=== PATIENT | female | born 1990 | race Caucasian/White ===

== ENCOUNTER 2019-12-09 17:07 | Emergency (ER) | payer BC, SELFPAY ==
--- NOTE | ~2019-12-09 | CT_ITS ---
EXAMINATION: CT abdomen pelvis w con INDICATION: Abdominal pain TECHNIQUE: Computed tomographic images of the abdomen and pelvis were obtained after the administrati on of 100 cc of Omnipaque 350 intravenous contrast. The dose-length product (DLP) was 279.13 mGy-cm. Automated exposure control and iterative reconstruction technique were employed. COMPARISON: 07/20/2019 FINDINGS: The lung bases are clear. The heart size is normal. The liver, spleen, pancreas, and adrena l glands are normal. Stones are present in the nondistended gallbladder. The kidneys are unremarkable . There is wall thickening of the gastric antrum. There is inflammatory change surrounding the gastri c antrum and the first portion of the duodenum. There is no free intraperitoneal gas or evidence of b owel obstruction. No pathologically enlarged abdominal or pelvic lymph nodes are identified. IMPRESSION: 1. Moderate wall thickening of the gastric antrum with inflammatory change surrounding the gastric an trum and first portion of the duodenum, consistent with history of peptic ulcer disease. Reviewed, dictated and finalized at location A. IMPRESSION: 1. Moderate wall thickening of the gastric antrum with inflammatory change surr ounding the gastric antrum and first portion of the duodenum, consistent with h istory of peptic ulcer disease.
[2019-12-09 17:10] VITALS: BP 147/93; PULSE 102; RESP 20; TEMP 36.9; O2SAT 100
[2019-12-09 17:26] VITALS: BP 124/86; PULSE 107; RESP 17; O2SAT 100
--- NOTE | 2019-12-09 17:28 | ED.ABDPAIN ---
HPI - Abdominal Pain General Chief Complaint: Abdominal Pain <Luke Keller PA-C - Last Filed: 12/09/19 19:08> Stated Complaint: abd pain <YOUSUF Patino Last Filed: 12/09/19 19:08> Time Seen by Provider: 12/09/19 17:08 <YOUSUF Patino Last Filed: 12/09/19 19:08> Source: patient <YOUSUF Patino Last Filed: 12/09/19 19:08> Mode of arrival: ambulatory <YOUSUF Patino Last Filed: 12/09/19 19:08> Limitations: no limitations <Luke Keller PA-C - Last Filed: 12/09/19 19:08> History of Present Illness HPI narrative: Patient is a 29-year-old female who presents to emergency department for evaluation of right upper quadrant epigastric abdominal tenderness that is moderate to severe in nature localized in the mentioned locations does not radiate history of peptic ulcer takes Protonix for this which has not helped patient has had similar pain but typically resolves. Patient denies other complaints pain is made worse with eating patient also notes decreased appetite <Luke Keller PA-C - Last Filed: 12/09/19 19:08> Related Data Home Medications: Home Medications Medication Instructions Recorded Confirmed pantoprazole 80 mg PO QAM 07/20/19 mirtazapine 30 mg PO HS 12/09/19 multivit with min-folic acid 1 mg PO DAILY 12/09/19 [Adult One Daily Multivitamin] <YOUSUF Patino Last Filed: 12/09/19 19:08> Allergies/Adverse Reactions: Allergies Allergy/AdvReac Type Severity Reaction Status Date / Time ibuprofen Allergy Unknown GI/ULCER Verified 12/09/19 17:15 <Luke Keller PA-C - Last Filed: 12/09/19 19:08> Review of Systems Review of Systems: All systems reviewed & are unremarkable except as noted in HPI and below <Luke Keller PA-C - Last Filed: 12/09/19 19:08> PMFSH Past Medical History Medical History: Medical History Anxiety Depression Duodenal ulcer, perforated Parotiditis Ulcer <YOUSUF Patino Last Filed: 12/09/19 19:08> Surgical History Surgical History: Surgical History H/O endoscopy <Luke Keller PA-C - Last Filed: 12/09/19 19:08> Social History Social History: Social History Gender identity (if verbalized by the patient): Female <Luke Keller PA-C - Last Filed: 12/09/19 19:08> Exam Narrative: Exam Narrative: GENERAL: Well-appearing, well-nourished, and in no acute distress. HEAD: Normocephalic, atraumatic. EYES: PERRLA and EOMI. ENT: Nares clear, no rhinorrhea or epistaxis. Mucous membranes moist. CHEST: Clear to auscultation. No respiratory distress. No wheezes rales or rhonchi HEART: Regular rate and rhythm. No murmur heard. Normal peripheral pulses. ABDOMEN: Soft, right upper quadrant and epigastric tenderness to palpation no rebound or guarding, nondistended, normal active bowel sounds. EXTREMITIES: Normal range of motion. No edema. SKIN: Warm, dry, no rash. NEURO: No focal deficits. Alert and oriented x3. PSYCH: Normal mood and affect. 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
[2019-12-09 17:30] LABS: Basophils Percent Auto 0.4 % (0.2-1.2); Eosinophils Absolute Auto 0.3 K/mm3 (0-0.3); Eosinophils Percent Auto 3.9 % (0-4.4); Hematocrit 42.1 % (37.0-47.0); Hemoglobin 14.5 g/dL (12.0-15.0); Immature Granulocyte Absolute 0.03 K/mm3 (0.00-0.031); Immature Granulocyte Percent A 0.4 % (0-0.5); Lymphocytes Absolute Auto 1.93 K/mm3 (0.9-3.2); Lymphocytes Percent Auto 28.9 % (18.3-44.2); Mean Corpuscular HGB Conc 34.4 g/dl (32-36); Mean Corpuscular Hemoglobin 30.5 pg (26-34); Mean Corpuscular Volume 88.4 fl (80-100); Mean Platelet Volume 9.6 fl (7.4-10.4); Monocytes Absolute Auto 0.4 K/mm3 (0.1-0.6); Monocytes Percent Auto 5.5 % (2.6-8.5); Neutrophils Absolute Auto 4.1 K/mm3 (1.3-6.7); Neutrophils Percent Auto 60.9 % (45.5-73.1); Platelet Count Result 199 k/mm3 (150-375); Red Blood Count 4.76 M/mm3 (4.2-5.4); Red Cell Distribution Width 11.5 % (11.5-14.5); White Blood Count 6.7 K/mm3 (4.5-10.0)
[2019-12-09 17:35] LABS: Add Urine Microscopic? YES; Appearance Urine Cloudy (Clear); Bacteria Urine Trace /hpf; Bilirubin Urine Negative (Negative); Blood Urine Negative (Negative); Color Urine Yellow (Yellow); Glucose Urine UA Negative (Negative); Ketones Urine Trace mg/dL (Negative); Leukocyte Esterase Ur Negative LEU/UL (Negative); Mucus Urine Heavy /lpf; Nitrate Urine Negative (Negative); Protein Urine 1+ mg/dL (Negative); Specific Grav Ur 1.029 (1.001-1.035); Squamous Epithelial Cell Urine Many /hpf (Few); Urobilinogen Urine Negative mg/dL (<2.0); WBC Urine 0-3 /hpf
[2019-12-09 17:40] LABS: Alanine Aminotransferase 14 U/L (4-35); Albumin Level 4.5 g/dL (3.5-5.1); Alkaline Phosphatase 56 U/L (38-126); Aspartate Amino Transferase 22 U/L (14-36); Blood Urea Nitrogen 9 mg/dL (7-17); Carbon Dioxide 25 mmol/L (22-30); Chloride 104 mmol/L (98-107); Estimated CRCL calculation 86 ml/min; Estimated Glomerular Filt Rate > 60; Glucose 93 mg/dL (65-105); Lipase 60 U/L (23-300); Potassium 3.5 mmol/L (3.4-5.0); Sodium 139 mmol/L (137-145)
[2019-12-09 18:28] VITALS: BP 139/89; PULSE 63; RESP 17; O2SAT 98
[2019-12-09 18:56] VITALS: TEMP 36.9
[2019-12-09] MEDS: BELLADONNA ALK/PHENOB ELIX 10 ML, MAG HYDROX/ALUMINUM HYD/SIMETH 30 ML, LIDOCAINE HCL 2... PO (19:18)
[2019-12-09 19:32] VITALS: BP 112/73; PULSE 85; O2SAT 100
== END 2019-12-09 19:24 | disposition home or self-care (01) ==
PROVIDERS: Emergency Medicine Emergency Medical Services; Emergency Provider Emergency Medicine
DX: R10.11 Right upper quadrant pain (principal); F41.9 Anxiety disorder, unspecified; F32.9 Major depressive disorder, single episode, unspecified; Z87.11 Personal history of peptic ulcer disease
CPT/HCPCS: 36415; 74177; 80053; 81001; 81025; 83690; 85025; 96365; 99284; A9270; J0131; Q9967